=== PATIENT | female | born 1980 | race Caucasian/White ===

== ENCOUNTER → 2017-06-25 | Outpatient (CLI) | payer OTHER ==
[2017-06-25 11:43] VITALS: BP 107/74; PULSE 71; TEMP 98; BMI 30.9
[2017-06-25 15:08] LABS: Appearance,Urine Clear (Clear); Bilirubin,Urine Negative (Negative); Blood,Urine Negative (Negative); Color,Urine Light Yellow; Glucose,Urine (UA) Negative (Negative); Ketones,Urine Negative (Negative); Leukocyte Esterase,Urine Negative (Negative); Nitrite,Urine Negative (Negative); PH, Urine 6.5 (5.0-8.0); Protein,Urine Negative (Negative); Specific Gravity,Urine 1.003 (1.001-1.035); Urobilinogen,Urine <2.0 mg/dL (<2.0)
--- NOTE | 2017-06-25 15:19 | P.HPOB ---
History of Present Illness H&P Date: 06/25/17 Chief Complaint: The patient is here for her routine gynecologic exam. This is a 37 year old G3 PIII with an LMP of 06/19/2017. The patient is status post tubal ligation. Her periods have been about every 21 to 23 days. On the heavier days she has to change your protection about every 2 hours. She states over the past 3 days she has been experiencing some strange sensations. Two days ago she started noticing that she had a sensation similar to that which she experiences prior to reaching orgasm during sexual activity. She was not involved with sexual activity at the time and was going about her normal business. Because of this, she became very aroused and later felt the need to engage in sexual activity for relief. This did seem to satisfy her for about 30 minutes, then she again had this sensation. She states she is a very sexual person but this was unusual for her. She has been more sexually active during the past few days because of this sensation. Today the sensation has not been as strong. She states her genital area now feels overstimulated and and she feels more post orgasmic and wants to avoid stimulation. She is unsure if this is related to some type of psychological arousal or if this is related to her genital organs. She has been experiencing some urinary frequency during this time. She also has noticed some urinary urgency immediately after today's examination. She denies dyspareunia. She denies any changes in her medications. She states she woke from sleep 2 nights ago with a spontaneous orgasm without any genital stimulation. This has not occurred during the day. Review of Systems She has lost about 9 pounds over the last year. She denies respiratory, cardiac , or G.I. problems. : see the HPI. Past Medical History Additional Past Medical History / Comment(s): ESOPHAGIAL SPASMS. Accessory spleen,anxiety,depression,migraines History of Any Multi-Drug Resistant Organisms: None Reported Past Surgical History: Cholecystectomy, Tubal Ligation Additional Past Surgical History / Comment(s): CERVIAL FUSION,plates and screws in neck. MIGRAINES, Past Anesthesia/Blood Transfusion Reactions: Previous Problems w/ Anesthesia Additional Past Anesthesia/Blood Transfusion Reaction / Comment(s): difficulty coming to after anasthesia Past Psychological History: Anxiety, Depression Additional Psychological History / Comment(s): previous suicide attempt ~2004 Smoking Status: Current every day smoker (1/2 pack/day) Past Alcohol Use History: Occasional (0-1/month) Past Drug Use History: None Reported Additional History: She was in 2007 and has been with her current boyfriend since 2009. 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 - Past Family History Daughter(s) Family Medical History: Diabetes Mellitus Brother(s) Family Medical History: Diabetes Mellitus Father Family Medical History: Cancer (Cancer of throat.) Medications and Allergies Home Medications Medication Instructions Recorded Confirmed Type ALPRAZolam [Xanax] 0.25 mg PO DAILY PRN 02/05/16 06/25/17 History Citalopram Hydrobromide [CeleXA] 10 mg PO DAILY 06/25/17 06/25/17 History Omeprazole [PriLOSEC] 20 mg PO AC-BRKFST 06/25/17 06/25/17 History Topiramate [Topamax] 25 mg PO DAILY 06/25/17 06/25/17 History Allergies Allergy/AdvReac Type Severity Reaction Status Date / Time acetaminophen Allergy Unknown Verified 02/05/16 23:49 [From Darvocet-N 100] Penicillins Allergy Unknown Verified 02/05/16 23:49 propoxyphene napsylate Allergy Unknown Verified 02/05/16 23:49 [From Darvocet-N 100] Exam - Vital Signs Vital signs: Vital Signs Temp Pulse BP 06/25/17 11:33 98.0 F 71 107/74 Intake and Output 06/24/17 06/25/17 06/25/17 22:59 06:59 14:59 Other: Weight 79.379 kg Patient Weight 06/26/17 06:59 Weight 79.379 kg Height 5'3" BMI 31. This is a well-developed well-nourished white female who is alert and oriented times 3 in no acute distress. HEENT: Within normal limits. NECK: Supple without mass or thyromegaly. CHEST AND LUNGS: Clear to auscultation. HEART: Regular rate and rhythm. BREASTS: Are without mass or discharge. AXILLARY EXAM: Negative for adenopathy. BACK: Negative for CVA tenderness. ABDOMEN: Soft, nontender, without palpable masses. PELVIC EXAM: Normal external genitalia. There is no vulvar or periclitoral erythema or inflammation. Cervix and vagina appear normal. There is no unusual discharge. There is no evidence of prolapse. The uterus is midposition, nongravid size and nontender. There are no palpable adnexal masses or tenderness. RECTAL EXAM: negative for mass or tenderness and is negative for occult blood. EXTREMITIES: Nontender. IMPRESSION: 1. 37-year-old female with normal gynecologic exam status post tubal ligation. 2. Hyperactive sexual arousal disorder for 3 days. The cause for this is uncertain. The differential diagnosis will include medication side effect, atypical urinary tract infection or some type of atypical neurologic disorder. 3. Mild hypermenorrhea. PLAN: 1. Pap smear was deferred since she had a normal one less than 2 years ago. 2. Self breast examination was discussed. 3. Urinalysis and urine culture were obtained. 4. We have had a long discussion regarding her symptoms. Since she feels a type of over stimulation, she was to advise to avoid all sexual activity at this time to see if her symptoms resolve. She will also be seeing her psychiatrist who prescribed her Celexa Topamax and Xanax. She will discuss her symptoms with her psychiatrist to see if he or she feels that the medications could be a cause for her hyperactive sexual arousal symptoms. 5. We have discussed options for her hypermenorrhea. She is going to contemplate possible endometrial ablation. She will call if she wants a referral for this procedure. 6. She will return in one year and PRN
--- NOTE | 2017-06-25 16:11 | P.PN ---
Progress Note - Text Progress Note Date: 06/25/17 See the H&P from today. Urinalysis is negative. The patient was called and notified of this. Await urine culture.
--- NOTE | 2017-07-01 17:54 | P.PN ---
Progress Note - Text Progress Note Date: 07/01/17 The urinalysis and urine culture from 06/25/17 were negative. These findings were left on the patient's voicemail.
== END | disposition home or self-care (01) ==
LOC: WWCWWP 11:18
PROVIDERS: ATTEND Obstetrics & Gynecology
DX: R35.0 Frequency of micturition (principal)
CPT/HCPCS: 81003; 87086

== ENCOUNTER → 2018-09-22 | Outpatient (CLI) | payer OTHER ==
[2018-09-22 12:56] VITALS: BP 109/77; PULSE 63; RESP 16; TEMP 98.1; BMI 29.5
--- NOTE | 2018-09-22 13:36 | P.HPOB ---
History of Present Illness H&P Date: 09/22/18 Chief Complaint: The patient is here for her routine gynecologic exam and ma mmogram. This is a 38-year-old G3 PIII with an LMP of 09/11/2018. The patient is status post tubal ligation. She is complaining of occasional slight urinary leakage with laughing or coughing. She states that it usually happens right away when she laughs our coughs. She denies urge incontinence. She states she has been one that holds her urine longer than she should. Last year she was having hyperactive sexual arousal and this was found to be secondary to the combination of Lexapro and Celexa. One of them was discontinued and the symptoms resolved. Review of Systems The patient has lost 8 pounds over the last year. She denies respiratory, cardiac, or G.I. problems. : occasional slight leakage of urine with coughing or laughing. Past Medical History Additional Past Medical History / Comment(s): ESOPHAGIAL SPASMS. Accessory spleen,anxiety,depression,migraines. 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 History of Any Multi-Drug Resistant Organisms: None Reported Past Surgical History: Appendectomy, Cholecystectomy, Tubal Ligation Additional Past Surgical History / Comment(s): CERVIAL FUSION,plates and screws in neck. MIGRAINE. Past Anesthesia/Blood Transfusion Reactions: Previous Problems w/ Anesthesia Additional Past Anesthesia/Blood Transfusion Reaction / Comment(s): difficulty coming to after anasthesia Past Psychological History: Anxiety, Depression Additional Psychological History / Comment(s): previous suicide attempt ~2004 Smoking Status: Former smoker Past Alcohol Use History: Occasional Past Drug Use History: None Reported Additional History: Quit smoking March 2018. She is and has been with her boyfriend since 2008. 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 She works out of her home. - Past Family History Daughter(s) Family Medical History: Diabetes Mellitus Additional Family Medical History / Comment(s): Type I diabetes. Brother(s) Family Medical History: Diabetes Mellitus Additional Family Medical History / Comment(s): Type I diabetes. Father Family Medical History: Cancer Additional Family Medical History / Comment(s): Throat cancer. Cousin had brain cancer. Medications and Allergies Home Medications Medication Instructions Recorded Confirmed Type ALPRAZolam [Xanax] 0.25 mg PO DAILY PRN 02/05/16 09/22/18 History Citalopram Hydrobromide [CeleXA] 10 mg PO DAILY 06/25/17 09/22/18 History Omeprazole [PriLOSEC] 20 mg PO AC-BRKFST 06/25/17 09/22/18 History Allergies Allergy/AdvReac Type Severity Reaction Status Date / Time acetaminophen Allergy Unknown Verified 09/22/18 12:51 [From Darvocet-N 100] Penicillins Allergy Unknown Verified 09/22/18 12:51 propoxyphene napsylate Allergy Unknown Verified 09/22/18 12:51 [From Darvocet-N 100] Exam Vital Signs Temp Pulse Resp BP Pulse Ox 09/22/18 12:53 98.1 F 63 16 109/77 99 Intake and Output 09/21/18 09/22/18 09/22/18 22:59 06:59 14:59 Other: Weight 75.75 kg Height 5'3", weight 167 pounds, BMI 29.6. This is a well-developed well-nourished white female who is alert and oriented t imes 3 in no acute distress. HEENT: Within normal limits. NECK: Supple without mass or thyromegaly. CHEST AND LUNGS: Clear to auscultation. HEART: Regular rate and rhythm. BREASTS: Are without mass or discharge. There is right central nipple inversion which the patient states has been this way for many years. The left nipple is not inverted. AXILLARY EXAM: Negative for adenopathy. BACK: Negative for CVA tenderness. ABDOMEN: Soft, nontender, without palpable masses. PELVIC EXAM: Normal external genitalia. Cervix and vagina appear normal. There is no unusual discharge. There is no evidence of prolapse. There is mild urethral mobility with Valsalva. No urinary leakage is demonstrated. The uterus is midposition, nongravid size and nontender. There are no palpable adnexal masses or tenderness. RECTAL EXAM: negative for mass or tenderness and is negative for occult blood. EXTREMITIES: Nontender. IMPRESSION: 1. 38-year-old female with normal gynecologic examination who is status post tubal ligation. 2. Mild stress urinary incontinence with mild urethral mobility with Valsalva. PLAN: 1. Pap smear was performed. 2. Self breast awareness was discussed with the patient. 3. Baseline screening mammogram will be done today. 4. We have discussed her mild stress urinary incontinence. I have recommended K[place] exercises with time to voids. Instructions were given to the patient for these. If she is having worsening symptoms, I have recommended that she be referred for further evaluation by a gynecologic urologist. 5. She was advised to return in one year for her annual well woman exam. The patient states she will be probably returning every other year.
--- NOTE | 2018-09-22 14:05 | MM ---
Reason for exam: screening (asymptomatic). Baseline mammogram. History: Took hormonal contraceptives beginning at age 13. Physical Findings: Nurse did not find any significant physical abnormalities on exam. MG Screening Mammo w CAD Bilateral CC and MLO view(s) were taken. The breast tissue is heterogeneously dense. This may lower the sensitivity of mammography. No suspicious abnormality. These results were verbally communicated with the patient and result sheet given to the patient on 09/22/18. ASSESSMENT: Negative, BI-RAD 1 RECOMMENDATION: Routine screening mammogram of both breasts in 1 year.
== END | disposition home or self-care (01) ==
LOC: WWCWWP 12:41
PROVIDERS: ATTEND Obstetrics & Gynecology
DX: Z12.31 Encounter for screening mammogram for malignant neoplasm of breast (principal)
CPT/HCPCS: 77067

== ENCOUNTER → 2020-05-19 | Outpatient (CLI) | payer OTHER ==
[2020-05-19 15:23] LABS: Basophils # (A) 0.06 X 10*3/uL (0.00-0.10); Basophils % (A) 0.7 %; Eosinophils # (A) 1.22 X 10*3/uL (0.04-0.35); Eosinophils % (A) 14.8 %; HCT 40.9 % (37.2-46.3); HGB 13.4 g/dL (12.0-15.0); Lymphocytes # (A) 1.39 X 10*3/uL (0.90-5.00); Lymphocytes % (A) 16.9 %; MCH 32.1 pg (27.0-32.0); MCHC 32.8 g/dL (32.0-37.0); MCV 98.1 fL (80.0-97.0); Monocytes # (A) 0.49 X 10*3/uL (0.20-1.00); Monocytes % (A) 5.9 %; Neutrophils # (A) 5.06 X 10*3/uL (1.80-7.70); Neutrophils % (A) 61.5 %; Platelet Count 197 X 10*3/uL (140-440); RBC 4.17 X 10*6/uL (4.10-5.20); RDW 12.6 % (11.5-14.5); WBC 8.24 X 10*3/uL (4.50-10.00)
[2020-05-19 20:33] LABS: ALT 13 U/L (8-44); AST 17 U/L (13-35); African American GFR (CKD) 91.4 (60.0-200.0); Albumin/Globulin Ratio 2.47 (1.60-3.17); Alkaline Phosphatase 63 U/L (41-126); Bilirubin, Conjugated <0.20 mg/dL (0.20-0.40); Carbon Dioxide 24.1 mmol/L (21.6-31.8); Chloride 107 mmol/L (96-109); Globulin 1.9 g/dL (1.6-3.3); Glucose 101 mg/dL (70-110); Lithium 0.7 mmol/L (0.5-1.2); Non-African American GFR(CKD) 78.9 (60.0-200.0); Potassium 4.7 mmol/L (3.5-5.5); Prolactin 74.4 ng/mL (2.8-29.2); Sodium 138 mmol/L (135-145); Total Bilirubin 0.5 mg/dL (0.3-1.2); Total Protein 6.6 g/dL (6.2-8.2)
[2020-05-19 20:33] LABS: Thyroid Peroxidase Antibodies <28.0 U/mL (0.0-60.0)
== END | disposition home or self-care (01) ==
LOC: LABWHC1 08:09
DX: Z01.812 Encounter for preprocedural laboratory examination (principal); Z79.899 Other long term (current) drug therapy
CPT/HCPCS: 36415; 80051; 80076; 80178; 82565; 82947; 83036; 84146; 84432; 84439; 84443; 84481; 84520; 85025; 86376; 86800

== ENCOUNTER → 2020-05-25 | Outpatient (CLI) | payer OTHER ==
[2020-05-25 13:27] LABS: Basophils # (A) 0.1 k/uL (0-0.2); Basophils % (A) 1 %; Eosinophils # (A) 2.5 k/uL (0-0.7); Eosinophils % (A) 24 %; HCT 42.3 % (34.0-46.0); HGB 14.2 gm/dL (11.4-16.0); Lymphocytes # (A) 2.3 k/uL (1.0-4.8); Lymphocytes % (A) 21 %; MCH 32.4 pg (25.0-35.0); MCHC 33.5 g/dL (31.0-37.0); MCV 96.6 fL (80.0-100.0); Mean Platelet Volume 7.8; Monocytes # (A) 0.4 k/uL (0-1.0); Monocytes % (A) 4 %; Neutrophils # (A) 5.3 k/uL (1.3-7.7); Neutrophils % (A) 49 %; Platelet Count 193 k/uL (150-450); RBC 4.38 m/uL (3.80-5.40); RDW 12.8 % (11.5-15.5); WBC 10.7 k/uL (3.8-10.6)
== END | disposition home or self-care (01) ==
LOC: LABWHC1 12:53
DX: D72.19 Other eosinophilia (principal)
CPT/HCPCS: 36415; 85025

== ENCOUNTER → 2020-05-30 | Outpatient (CLI) | payer OTHER ==
[2020-05-30 10:28] LABS: Basophils # (A) 0.1 k/uL (0-0.2); Basophils % (A) 1 %; Eosinophils # (A) 2.8 k/uL (0-0.7); HCT 41.5 % (34.0-46.0); HGB 13.8 gm/dL (11.4-16.0); Lymphocytes % (A) 18 %; MCH 32.1 pg (25.0-35.0); MCHC 33.2 g/dL (31.0-37.0); MCV 96.5 fL (80.0-100.0); Monocytes # (A) 0.4 k/uL (0-1.0); Monocytes % (A) 3 %; Neutrophils # (A) 5.7 k/uL (1.3-7.7); Neutrophils % (A) 51 %; Platelet Count 202 k/uL (150-450); RDW 13.2 % (11.5-15.5); WBC 11.1 k/uL (3.8-10.6)
[2020-05-30 11:10] LABS: Eosinophils % (A) 26 %
== END | disposition home or self-care (01) ==
LOC: LABWHC1 09:57
PROVIDERS: ATTEND Internal Medicine
DX: D72.19 Other eosinophilia (principal); Z88.8 Allergy status to other drugs, medicaments and biological substances
CPT/HCPCS: 36415; 85025

== ENCOUNTER → 2020-06-02 | Outpatient (CLI) | payer OTHER ==
[2020-06-02 14:25] LABS: Basophils # (A) 0.1 k/uL (0-0.2); Basophils % (A) 1 %; Eosinophils # (A) 2.5 k/uL (0-0.7); HCT 41.4 % (34.0-46.0); HGB 13.8 gm/dL (11.4-16.0); Lymphocytes # (A) 2.4 k/uL (1.0-4.8); Lymphocytes % (A) 27 %; MCH 32.3 pg (25.0-35.0); MCHC 33.4 g/dL (31.0-37.0); MCV 96.9 fL (80.0-100.0); Mean Platelet Volume 8.1; Monocytes # (A) 0.3 k/uL (0-1.0); Monocytes % (A) 3 %; Neutrophils # (A) 3.5 k/uL (1.3-7.7); Neutrophils % (A) 39 %; Platelet Count 182 k/uL (150-450); RBC 4.28 m/uL (3.80-5.40); RDW 12.8 % (11.5-15.5); WBC 8.8 k/uL (3.8-10.6)
[2020-06-02 14:33] LABS: Eosinophils % (A) 29 %
== END | disposition home or self-care (01) ==
LOC: LABWHC1 13:53
PROVIDERS: ATTEND Internal Medicine
DX: D72.19 Other eosinophilia (principal); Z88.8 Allergy status to other drugs, medicaments and biological substances
CPT/HCPCS: 36415; 85025

== ENCOUNTER → 2020-06-09 | Outpatient (CLI) | payer OTHER ==
[2020-06-09 09:10] LABS: Basophils # (A) 0.1 k/uL (0-0.2); Basophils % (A) 1 %; Eosinophils # (A) 1.7 k/uL (0-0.7); HCT 42.6 % (34.0-46.0); HGB 13.9 gm/dL (11.4-16.0); Lymphocytes # (A) 1.3 k/uL (1.0-4.8); Lymphocytes % (A) 20 %; MCH 31.1 pg (25.0-35.0); MCHC 32.6 g/dL (31.0-37.0); MCV 95.6 fL (80.0-100.0); Monocytes # (A) 0.3 k/uL (0-1.0); Monocytes % (A) 5 %; Neutrophils # (A) 3.1 k/uL (1.3-7.7); Neutrophils % (A) 47 %; Platelet Count 187 k/uL (150-450); RBC 4.46 m/uL (3.80-5.40); RDW 13.4 % (11.5-15.5); WBC 6.6 k/uL (3.8-10.6)
[2020-06-09 09:31] LABS: Eosinophils % (A) 26 %
== END | disposition home or self-care (01) ==
LOC: LABWHC1 08:54
PROVIDERS: ATTEND Internal Medicine
DX: Z88.8 Allergy status to other drugs, medicaments and biological substances (principal); D72.19 Other eosinophilia
CPT/HCPCS: 36415; 85025

== ENCOUNTER 2020-11-01 12:19 | Emergency (ER) | payer OTHER ==
[2020-11-01 12:24] LABS: Glucose,Whole Blood 112 mg/dL (75-99)
[2020-11-01 12:26] VITALS: TEMP 98.2
[2020-11-01] MEDS ORDERED: SODIUM CHLORIDE 0.9% 1,000 ML IV STA (12:47)
--- NOTE | 2020-11-01 13:14 | ED ---
General Adult HPI - General Chief complaint: Dizziness Stated complaint: Light-Headed/Shakiness Time Seen by Provider: 11/01/20 12:29 Source: patient, RN notes reviewed, old records reviewed Mode of arrival: wheelchair Limitations: no limitations - History of Present Illness Initial comments: 40-year-old female presenting with near syncopal episode. She had been bent over petting her dog, when she stood she felt very lightheaded. She had some brief visual changes and became diaphoretic. She states she has been dealing with some increased anxiety and has had some medications added by her psychiatrist. She denied chest pain or dyspnea. No previous history of arrhythmia. She states she has not had much to eat or drink today but has not had any significant vomiting or diarrhea. No fevers. - Related Data Home Medications Medication Instructions Recorded Confirmed ALPRAZolam [Xanax] 0.5 mg PO TID 11/01/20 11/01/20 ARIPiprazole [Abilify] 10 mg PO DAILY 11/01/20 11/01/20 Allergies Allergy/AdvReac Type Severity Reaction Status Date / Time acetaminophen Allergy Unknown Verified 09/22/18 12:51 [From Darvocet-N 100] lithium Allergy Unknown Verified 11/01/20 12:26 Penicillins Allergy Unknown Verified 09/22/18 12:51 propoxyphene napsylate Allergy Unknown Verified 09/22/18 12:51 [From Darvocet-N 100] Review of Systems ROS Statement: Those systems with pertinent positive or pertinent negative responses have been documented in the HPI. ROS Other: All systems not noted in ROS Statement are negative. Past Medical History Additional Past Medical History / Comment(s): ESOPHAGIAL SPASMS. Accessory spleen,anxiety,depression,migraines. 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 History of Any Multi-Drug Resistant Organisms: None Reported Past Surgical History: Appendectomy, Cholecystectomy, Tubal Ligation Additional Past Surgical History / Comment(s): CERVIAL FUSION,plates and screws in neck. MIGRAINE. Past Anesthesia/Blood Transfusion Reactions: Previous Problems w/ Anesthesia Additional Past Anesthesia/Blood Transfusion Reaction / Comment(s): difficulty coming to after anasthesia Past Psychological History: Anxiety, Bipolar, Depression Smoking Status: Never smoker Past Alcohol Use History: Occasional Past Drug Use History: Marijuana - Past Family History Daughter(s) Family Medical History: Diabetes Mellitus Additional Family Medical History / Comment(s): Type I diabetes. Brother(s) Family Medical History: Diabetes Mellitus Additional Family Medical History / Comment(s): Type I diabetes. Father Family Medical History: Cancer Additional Family Medical History / Comment(s): Throat cancer. Cousin had brain cancer. General Exam Limitations: no limitations General appearance: alert, in no apparent distress Head exam: Present: atraumatic, normocephalic Eye exam: Present: normal appearance, PERRL ENT exam: Present: normal exam Neck exam: Present: normal inspection. Absent: tenderness, meningismus Respiratory exam: Present: normal lung sounds bilaterally. Absent: respiratory distress, wheezes Cardiovascular Exam: Present: regular rate, normal rhythm GI/Abdominal exam: Present: soft. Absent: distended, tenderness Extremities exam: Present: normal inspection, normal capillary refill. Absent: pedal edema, calf tenderness Neurological exam: Present: alert, oriented X3, CN II-XII intact Psychiatric exam: Present: anxious Skin exam: Present: warm, dry, intact. Absent: cyanosis, diaphoretic Course Vital Signs 11/01/20 11/01/20 12:19 13:32 Temperature 98.2 F Pulse Rate 75 62 Respiratory 18 20 Rate Blood Pressure 102/71 117/76 O2 Sat by Pulse 99 98 Oximetry EKG Findings - EKG Comments: EKG Findings:: EKG: Normal sinus rhythm, low voltage, rate of 66, LA interval 120, QRS duration 82, QTC 446, no ST segment elevation. Medical Decision Making - Medical Decision Making 40-year-old female presenting with near syncopal episode after standing. Patient has stable vitals upon arrival. She is in sinus rhythm. I did obtain laboratory testing including blood work and urinalysis. She has a normal CBC, normal CMP, negative urinalysis, negative urine test. She has normal electrolytes, negative d-dimer, negative troponin. Chest x-ray is clear. She's given a liter of IV hydration. She is feeling good on reevaluation with some mild nausea. No vomiting. We did discuss return parameters. She will maintain oral hydration at home and increase her fluid intake. - Lab Data Result diagrams: 11/01/20 13:00 11/01/20 13:00 Lab Results 11/01/20 11/01/20 11/01/20 Range/Units 12:23 13:00 13:00 WBC 8.6 (3.8-10.6) k/uL RBC 4.21 (3.80-5.40) m/uL Hgb 13.8 (11.4-16.0) gm/dL Hct 40.5 (34.0-46.0) % MCV 96.2 (80.0-100.0) fL MCH 32.8 (25.0-35.0) pg MCHC 34.1 (31.0-37.0) g/dL RDW 13.1 (11.5-15.5) % Plt Count 210 (150-450) k/uL MPV 8.4 Neutrophils % 58 % Lymphocytes % 29 % Monocytes % 4 % Eosinophils % 7 % Basophils % 1 % Neutrophils # 5.0 (1.3-7.7) k/uL Lymphocytes # 2.5 (1.0-4.8) k/uL Monocytes # 0.4 (0-1.0) k/uL Eosinophils # 0.6 (0-0.7) k/uL Basophils # 0.1 (0-0.2) k/uL PT 9.8 (9.0-12.0) sec INR 0.9 (<1.2) APTT 24.2 (22.0-30.0) sec D-Dimer 0.35 (<0.60) mg/L FEU Sodium (137-145) mmol/L Potassium (3.5-5.1) mmol/L Chloride (98-107) mmol/L Carbon Dioxide (22-30) mmol/L Anion Gap mmol/L BUN (7-17) mg/dL Creatinine (0.52-1.04) mg/dL Est GFR (CKD-EPI)AfAm (>60 ml/min/1.73 sqM) Est GFR (CKD-EPI)NonAf (>60 ml/min/1.73 sqM) Glucose (74-99) mg/dL POC Glucose (mg/dL) 112 H (75-99) mg/dL POC Glu Knock Out Hand ID [place], Cat Calcium (8.4-10.2) mg/dL Magnesium (1.6-2.3) mg/dL Total Bilirubin (0.2-1.3) mg/dL AST (14-36) U/L ALT (4-34) U/L Alkaline Phosphatase (38-126) U/L Troponin I (0.000-0.034) ng/mL Total Protein (6.3-8.2) g/dL Albumin (3.5-5.0) g/dL Urine Color Urine Appearance (Clear) Urine pH (5.0-8.0) Ur Specific [place] (1.001-1.035) Urine Protein (Negative) Urine Glucose (UA) (Negative) Urine Ketones (Negative) Urine Blood (Negative) Urine Nitrite (Negative) Urine Bilirubin (Negative) Urine Urobilinogen (<2.0) mg/dL Ur Leukocyte Esterase (Negative) Urine HCG, Qual (Not Detectd) 11/01/20 11/01/20 11/01/20 Range/Units 13:00 13:00 13:00 WBC (3.8-10.6) k/uL RBC (3.80-5.40) m/uL Hgb (11.4-16.0) gm/dL Hct (34.0-46.0) % MCV (80.0-100.0) fL MCH (25.0-35.0) pg MCHC (31.0-37.0) g/dL RDW (11.5-15.5) % Plt Count (150-450) k/uL MPV Neutrophils % % Lymphocytes % % Monocytes % % Eosinophils % % Basophils % % Neutrophils # (1.3-7.7) k/uL Lymphocytes # (1.0-4.8) k/uL Monocytes # (0-1.0) k/uL Eosinophils # (0-0.7) k/uL Basophils # (0-0.2) k/uL PT (9.0-12.0) sec INR (<1.2) APTT (22.0-30.0) sec D-Dimer (<0.60) mg/L FEU Sodium 139 (137-145) mmol/L Potassium 4.1 (3.5-5.1) mmol/L Chloride 108 H (98-107) mmol/L Carbon Dioxide 24 (22-30) mmol/L Anion Gap 7 mmol/L BUN 9 (7-17) mg/dL Creatinine 0.67 (0.52-1.04) mg/dL Est GFR (CKD-EPI)AfAm >90 (>60 ml/min/1.73 sqM) Est GFR (CKD-EPI)NonAf >90 (>60 ml/min/1.73 sqM) Glucose 94 (74-99) mg/dL POC Glucose (mg/dL) (75-99) mg/dL POC Glu Knock Out Hand ID Calcium 9.6 (8.4-10.2) mg/dL Magnesium 1.8 (1.6-2.3) mg/dL Total Bilirubin 0.7 (0.2-1.3) mg/dL AST 23 (14-36) U/L ALT 13 (4-34) U/L Alkaline Phosphatase 56 (38-126) U/L Troponin I <0.012 (0.000-0.034) ng/mL Total Protein 7.0 (6.3-8.2) g/dL Albumin 4.4 (3.5-5.0) g/dL Urine Color Light Yellow Urine Appearance Clear (Clear) Urine pH 5.0 (5.0-8.0) Ur Specific [place] 1.004 (1.001-1.035) Urine Protein Negative (Negative) Urine Glucose (UA) Negative (Negative) Urine Ketones Negative (Negative) Urine Blood Negative (Negative) Urine Nitrite Negative (Negative) Urine Bilirubin Negative (Negative) Urine Urobilinogen <2.0 (<2.0) mg/dL Ur Leukocyte Esterase Negative (Negative) Urine HCG, Qual (Not Detectd) 11/01/20 Range/Units 13:00 WBC (3.8-10.6) k/uL RBC (3.80-5.40) m/uL Hgb (11.4-16.0) gm/dL Hct (34.0-46.0) % MCV (80.0-100.0) fL MCH (25.0-35.0) pg MCHC (31.0-37.0) g/dL RDW (11.5-15.5) % Plt Count (150-450) k/uL MPV Neutrophils % % Lymphocytes % % Monocytes % % Eosinophils % % Basophils % % Neutrophils # (1.3-7.7) k/uL Lymphocytes # (1.0-4.8) k/uL Monocytes # (0-1.0) k/uL Eosinophils # (0-0.7) k/uL Basophils # (0-0.2) k/uL PT (9.0-12.0) sec INR (<1.2) APTT (22.0-30.0) sec D-Dimer (<0.60) mg/L FEU Sodium (137-145) mmol/L Potassium (3.5-5.1) mmol/L Chloride (98-107) mmol/L Carbon Dioxide (22-30) mmol/L Anion Gap mmol/L BUN (7-17) mg/dL Creatinine (0.52-1.04) mg/dL Est GFR (CKD-EPI)AfAm (>60 ml/min/1.73 sqM) Est GFR (CKD-EPI)NonAf (>60 ml/min/1.73 sqM) Glucose (74-99) mg/dL POC Glucose (mg/dL) (75-99) mg/dL POC Glu Knock Out Hand ID Calcium (8.4-10.2) mg/dL Magnesium (1.6-2.3) mg/dL Total Bilirubin (0.2-1.3) mg/dL AST (14-36) U/L ALT (4-34) U/L Alkaline Phosphatase (38-126) U/L Troponin I (0.000-0.034) ng/mL Total Protein (6.3-8.2) g/dL Albumin (3.5-5.0) g/dL Urine Color Urine Appearance (Clear) Urine pH (5.0-8.0) Ur Specific [place] (1.001-1.035) Urine Protein (Negative) Urine Glucose (UA) (Negative) Urine Ketones (Negative) Urine Blood (Negative) Urine Nitrite (Negative) Urine Bilirubin (Negative) Urine Urobilinogen (<2.0) mg/dL Ur Leukocyte Esterase (Negative) Urine HCG, Qual Not Detected (Not Detectd) Disposition Clinical Impression: Near syncope Disposition: HOME SELF-CARE Condition: Good Instructions (If sedation given, give patient instructions): Near Syncope (ED) Is patient prescribed a controlled substance at d/c from ED?: No Referrals: Kieran Malave MD [Primary Care Provider] - 1-2 days Time of Disposition: 14:22
[2020-11-01 13:17] LABS: Appearance,Urine Clear (Clear); Basophils # (A) 0.1 k/uL (0-0.2); Basophils % (A) 1 %; Bilirubin,Urine Negative (Negative); Blood,Urine Negative (Negative); Color,Urine Light Yellow; Eosinophils # (A) 0.6 k/uL (0-0.7); Eosinophils % (A) 7 %; Glucose,Urine (UA) Negative (Negative); HCT 40.5 % (34.0-46.0); HGB 13.8 gm/dL (11.4-16.0); Ketones,Urine Negative (Negative); Leukocyte Esterase,Urine Negative (Negative); Lymphocytes # (A) 2.5 k/uL (1.0-4.8); Lymphocytes % (A) 29 %; MCH 32.8 pg (25.0-35.0); MCHC 34.1 g/dL (31.0-37.0); MCV 96.2 fL (80.0-100.0); Mean Platelet Volume 8.4; Monocytes # (A) 0.4 k/uL (0-1.0); Monocytes % (A) 4 %; Neutrophils % (A) 58 %; Nitrite,Urine Negative (Negative); Platelet Count 210 k/uL (150-450); Protein,Urine Negative (Negative); RBC 4.21 m/uL (3.80-5.40); RDW 13.1 % (11.5-15.5); Specific Gravity,Urine 1.004 (1.001-1.035); Urobilinogen,Urine <2.0 mg/dL (<2.0); WBC 8.6 k/uL (3.8-10.6)
--- NOTE | 2020-11-01 13:31 | XR ---
EXAMINATION TYPE: XR chest 2V DATE OF EXAM: 11/01/2020 COMPARISON: 02/06/2016 HISTORY: Syncope TECHNIQUE: Frontal and lateral views of the chest are obtained. FINDINGS: There is no focal air space opacity, pleural effusion, or pneumothorax seen. The cardiac silhouette size is within normal limits. The osseous structures are intact. IMPRESSION: No acute cardiopulmonary process.
[2020-11-01 13:32] VITALS: PULSE 62; RESP 20
[2020-11-01 13:32] LABS: D-Dimer 0.35 mg/L FEU (<0.60); INR 0.9 (<1.2); Partial Thromboplastin Time 24.2 sec (22.0-30.0); Prothrombin Time 9.8 sec (9.0-12.0)
[2020-11-01 13:42] LABS: ALT 13 U/L (4-34); AST 23 U/L (14-36); African American GFR (CKD) >90 (>60 ml/min/1.73 sqM); Albumin 4.4 g/dL (3.5-5.0); Alkaline Phosphatase 56 U/L (38-126); Anion Gap 7 mmol/L; Blood Urea Nitrogen 9 mg/dL (7-17); Calcium 9.6 mg/dL (8.4-10.2); Carbon Dioxide 24 mmol/L (22-30); Chloride 108 mmol/L (98-107); Glucose 94 mg/dL (74-99); Magnesium 1.8 mg/dL (1.6-2.3); Non-African American GFR(CKD) >90 (>60 ml/min/1.73 sqM); Potassium 4.1 mmol/L (3.5-5.1); Sodium 139 mmol/L (137-145); Total Bilirubin 0.7 mg/dL (0.2-1.3)
[2020-11-01 14:25] VITALS: BP 105/66
== END 2020-11-01 14:34 | disposition home or self-care (01) ==
LOC: EC 12:19
DX: R55 Syncope and collapse (principal); F41.9 Anxiety disorder, unspecified; F32.9 Major depressive disorder, single episode, unspecified; F12.90 Cannabis use, unspecified, uncomplicated
CPT/HCPCS: 36415; 71046; 80053; 81003; 81025; 83735; 84484; 85025; 85379; 85610; 85730; 93005; 96360; 99284

== ENCOUNTER → 2020-12-05 | Outpatient (CLI) | payer OTHER ==
[2020-12-05 14:08] VITALS: BP 113/77; PULSE 72; RESP 18
--- NOTE | 2020-12-05 15:24 | P.HPOB ---
History of Present Illness H&P Date: 12/05/20 Chief Complaint: The patient is here for her routine gynecologic exam and ma mmogram. This is a 40-year-old with an LMP of 12/01/2020. The patient is status post tubal ligation. Menstrual periods are regular every 23 days. She typically last 5-6 days with 3 days of very heavy flow. She states on the heavy days she has to change her protection every 1-1/2-2 hours. She occasionally soaks through her protection. She does have cramping and back ache with the heavy menstrual flow. She also has been having issues with depression and has been seeing her psychiatrist, Dr. Collier. She often notices worsening of depression during the premenstrual days. She can also feel oversensitive during this time which can lead to worsening of her depression. She is on several medications now for her depression. She is currently denying suicidal thoughts at this time, but has been dealing with her psychiatrist regarding suicidal thoughts in the past. She states this is why she is on so many medications for this. Her depression has been doing better on this combination of medications, however it seems to make her more tired. She had one episode where she almost fainted 2 weeks ago. She states she has been smoking more marijuana thinking that this may help with her anxiety and less and the need for some of the medications. Review of Systems The patient has gained 3 pounds over the last year. She denies respiratory, cardiac, or G.I. problems. Past Medical History Additional Past Medical History / Comment(s): ESOPHAGIAL SPASMS. Accessory spleen,anxiety,depression,migraines. 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 History of Any Multi-Drug Resistant Organisms: None Reported Past Surgical History: Appendectomy, Cholecystectomy, Tubal Ligation Additional Past Surgical History / Comment(s): CERVIAL FUSION,plates and screws in neck. MIGRAINE. Past Anesthesia/Blood Transfusion Reactions: Previous Problems w/ Anesthesia Additional Past Anesthesia/Blood Transfusion Reaction / Comment(s): difficulty coming to after anasthesia Past Psychological History: Anxiety, Bipolar, Depression Additional Psychological History / Comment(s): previous suicide attempt ~2004 Smoking Status: Former smoker, Vaper (She vapes nicotine.) Past Alcohol Use History: Occasional (1 per month) Additional Past Alcohol Use History / Comment(s): Quit smoking in 2018. Past Drug Use History: Marijuana (Daily use.) - Past Family History Daughter(s) Family Medical History: Diabetes Mellitus Additional Family Medical History / Comment(s): Type I diabetes. Brother(s) Family Medical History: Diabetes Mellitus Additional Family Medical History / Comment(s): Type I diabetes. Father Family Medical History: Cancer Additional Family Medical History / Comment(s): Throat cancer. Cousin had brain cancer. Medications and Allergies Home Medications Medication Instructions Recorded Confirmed Type ALPRAZolam [Xanax] 0.5 mg PO TID 11/01/20 12/05/20 History ARIPiprazole [Abilify] 10 mg PO HS 11/01/20 12/05/20 History Benztropine Mesylate [Cogentin] 0.5 mg PO BID 11/01/20 12/05/20 History Escitalopram [Lexapro] 20 mg PO DAILY 11/01/20 12/05/20 History FLUoxetine HCL [PROzac] 40 mg PO DAILY 11/01/20 12/05/20 History Topiramate [Topamax] 25 mg PO DAILY 11/01/20 12/05/20 History ALPRAZolam [Xanax XR] 0.5 mg PO DAILY 12/05/20 12/05/20 History Allergies Allergy/AdvReac Type Severity Reaction Status Date / Time lithium Allergy Unknown Verified 12/05/20 14:04 Penicillins Allergy Unknown Verified 12/05/20 14:04 propoxyphene napsylate Allergy Unknown Verified 12/05/20 14:04 [From [facility]-N 100] Exam Vital Signs Pulse Resp BP Pulse Ox 12/05/20 14:01 72 18 113/77 98 Intake and Output 12/05/20 12/05/20 12/05/20 06:59 14:59 22:59 Other: Weight 77.111 kg Height 5 feet 3 inches, weight 170 pounds, BMI 30.1. This is a well-developed well-nourished white female who is alert and oriented times 3 in no acute distress. HEENT: Within normal limits. NECK: Supple without mass or thyromegaly. CHEST AND LUNGS: Clear to auscultation. HEART: Regular rate and rhythm. BREASTS: Are without mass or discharge. Right breast has central nipple inversion and she states it is been this way for many years. The left breast nipple is not inverted. AXILLARY EXAM: Negative for adenopathy. BACK: Negative for CVA tenderness. ABDOMEN: Soft, nontender, without palpable masses. PELVIC EXAM: Normal external genitalia. Cervix and vagina appear normal. There is no unusual discharge. There is no evidence of prolapse. The uterus is midposition, nongravid size and nontender. There are no palpable adnexal masses or tenderness. RECTAL EXAM: negative for mass or tenderness and is negative for occult blood. EXTREMITIES: Nontender. IMPRESSION: 1. 40-year-old female who is status post tubal ligation with hypermenorrhea. 2. History of depression with PMDD. 3. Regular marijuana use. PLAN: 1. Pap smear cotest was performed. 2. Self breast awareness was discussed with the patient. We have also discussed symptoms associated with inflammatory breast cancer. 3. Screening mammogram will be done today. 4. We have had a long discussion regarding her menstrual periods as well as her premenstrual symptoms. She was wondering if surgical menopause would be beneficial. We have had a long discussion regarding how removal of the ovaries can sometimes lead to other symptoms and sometimes worsening of depression. After long discussion, we have decided to proceed with endometrial ablation since this should help with her hypermenorrhea and it is possible that she may have improvement with her cyclic symptoms, especially if she no longer has menstrual periods. 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 We can still consider other options if symptoms are not improving after the ablation. The ACOG FAQ on endometrial ablation was given to the patient. He will be referred to Dr. Buitrago for possible endometrial ablation. I did not feel that hormone blood tests will be very beneficial since she is having regular menstrual periods. This is not saying that her symptoms are not hormonally related. 5. I have recommended that she try to decrease marijuana use since this may have effects on her mental health. 6. She was advised to return in one year for her annual well woman exam and as needed.
--- NOTE | 2020-12-07 09:43 | MM ---
Reason for exam: screening (asymptomatic). Last mammogram was performed 2 years and 2 months ago. History: Took hormonal contraceptives beginning at age 13. Physical Findings: A clinical breast exam by your physician is recommended on an annual basis and results should be correlated with mammographic findings. MG Screening Mammo w CAD Bilateral CC and MLO view(s) were taken. Prior study comparison: September 22, 2018, bilateral MG screening mammo w CAD. The breast tissue is heterogeneously dense. This may lower the sensitivity of mammography. Medial anterior asymmetric density right CC view is increased. Central outer asymmetric density posterior right CC view is increased. Posterior superior asymmetric density right MLO view. ASSESSMENT: Incomplete: need additional imaging evaluation, BI-RAD 0 RECOMMENDATION: Special view mammogram of the right breast. (3D) If lesion persists on supplemental views, image directed ultrasound is recommended. [facility] will attempt to contact patient to return for supplemental views and ultrasound if indicated.
== END | disposition home or self-care (01) ==
LOC: WWCWWP 13:43
PROVIDERS: ATTEND Obstetrics & Gynecology
DX: Z12.31 Encounter for screening mammogram for malignant neoplasm of breast (principal); F12.90 Cannabis use, unspecified, uncomplicated; N92.0 Excessive and frequent menstruation with regular cycle; Z98.51 Tubal ligation status
CPT/HCPCS: 77067

== ENCOUNTER → 2021-01-19 | Outpatient (CLI) | payer OTHER ==
[2021-01-19 11:40] LABS: Basophils % (A) 1 %; Eosinophils # (A) 0.3 k/uL (0-0.7); Eosinophils % (A) 5 %; HCT 38.3 % (34.0-46.0); HGB 12.7 gm/dL (11.4-16.0); Lymphocytes # (A) 2.1 k/uL (1.0-4.8); Lymphocytes % (A) 31 %; MCH 32.6 pg (25.0-35.0); MCHC 33.1 g/dL (31.0-37.0); MCV 98.7 fL (80.0-100.0); Mean Platelet Volume 8.1; Monocytes # (A) 0.3 k/uL (0-1.0); Monocytes % (A) 4 %; Neutrophils # (A) 3.9 k/uL (1.3-7.7); Neutrophils % (A) 59 %; Platelet Count 201 k/uL (150-450); RBC 3.88 m/uL (3.80-5.40); RDW 12.6 % (11.5-15.5); WBC 6.7 k/uL (3.8-10.6)
== END | disposition home or self-care (01) ==
LOC: LABPAT 10:35
PROVIDERS: ATTEND Obstetrics & Gynecology
DX: Z01.812 Encounter for preprocedural laboratory examination (principal); N92.1 Excessive and frequent menstruation with irregular cycle
CPT/HCPCS: 85025

== ENCOUNTER 2021-01-29 07:40 | Day surgery (SDC) | payer OTHER ==
[2021-01-25 13:31] VITALS: BMI 29.0
[~2021-01-29 07:40] MED LIST: DEXAMETHASONE SOD PHOSPHATE 4 MG/ML 1 ML VIAL IV ONE; HYDROmorphone 0.5 MG/0.5 ML SYRINGE IVP PRN; LACTATED RINGERS 1,000 ML IV SCH; LIDOCAINE 1% (10MG/ML) FOR IV START INTRADERMA PRN; MIDAZOLAM 2 MG/2 ML VIAL IV PRN; ONDANSETRON 4 MG/2 ML VIAL IVP ONE
[2021-01-29 08:12] VITALS: RESP 16
[2021-01-29] MEDS ORDERED: ePHEDrine SULFATE/0.9% NACL/PF 50 MG/5 ML SYRINGE IV ONE (08:36)
[2021-01-29] MEDS ORDERED: LIDOCAINE 1% INJ 10MG/ML (20 ML MDV) ONE (08:36)
[2021-01-29] MEDS ORDERED: KETOROLAC 15 MG/ML 1 ML VIAL ONE (08:36)
[2021-01-29] MEDS ORDERED: fentaNYL (PF) 50 MCG/ML 2 ML AMP ONE (08:36)
[2021-01-29] MEDS ORDERED: PROPOFOL 10 MG/ML 20 ML VIAL IV ONE (08:36)
[2021-01-29] MEDS ORDERED: MIDAZOLAM 2 MG/2 ML VIAL ONE (08:36)
[2021-01-29] MEDS ORDERED: METOCLOPRAMIDE 5 MG/ML 2 ML VIAL IVP PRN (09:20)
[2021-01-29] MEDS ORDERED: ONDANSETRON 4 MG/2 ML VIAL IVP PRN (09:20)
[2021-01-29] MEDS ORDERED: Acetaminophen-Codeine 300-30mg TAB PO PRN ×2 (09:20)
[2021-01-29] MEDS ORDERED: IBUPROFEN 600 MG TAB PO PRN (09:20)
[2021-01-29] MEDS ORDERED: KETOROLAC 15 MG/ML 1 ML VIAL IVP PRN (09:20)
[2021-01-29] MEDS ORDERED: SIMETHICONE 80 MG CHEWABLE PO PRN (09:20)
[2021-01-29] MEDS ORDERED: diphenhydrAMINE 50 MG/ML 1 ML VIAL IVP PRN (09:20)
--- NOTE | 2021-01-29 09:28 | P.OP ---
Date of Procedure: 01/29/21 Preoperative Diagnosis: #1. Menometrorrhagia Postoperative Diagnosis: Same Procedure(s) Performed: #1. Diagnostic hysteroscopy #2. NovaSure endometrial ablation Anesthesia: other (Gen. by LMA) Surgeon: Parth Buitrago Estimated Blood Loss (ml): 5 IV fluids (ml): 500 Urine output (ml): 10 Pathology: none sent Condition: stable Disposition: PACU Operative Findings: Preoperative pelvic examination demonstrated a roughly 5 week anteverted mobile normal shaped uterus with normal adnexa bilaterally. Intraoperatively, the uterus sounded to approximately 9 cm with a cervical length of approximately 3.5 cm. Using the hysteroscope, the bilateral tubal ostia were seen and there was a moderate amount of shaggy endometrium present. There was no evidence of obvious polyps or fibroids or other pathology. The settings for the NovaSure tool were initially a length of 5.5 cm, a width of 4.5 cm for a total power 136 W. After a total run time of 69 seconds divided between 4 different attempts to ablate the, the tool and base unit were abandoned and replaced with a new tool and new base unit. The first tool reportedly failed for a vacuum failure on multiple different attempts. The second 2 was then placed for a length of 5.5 cm, a width of 3.5 cm for a total power of 106 W. The total run time for this to was 87 seconds after which time the base unit read "procedure complete." The postprocedural result appeared excellent. The patient is a potential candidate for vaginal hysterectomy should it become necessary. Description of Procedure: The patient was prepped and draped in usual fashion after general anesthesia was administered by the anesthesiologist. A weighted speculum was placed and the bladder drained of approximately 10 mL of clear judi urine. The anterior lip of the cervix was grasped with a single tooth tenaculum and uterus was sounded to 9 cm with a cervical length of 3.5 cm. Serial dilation was carried out to admit the diagnostic hysteroscope which was placed into the endometrial cavity and it was distended with saline. The findings were as noted above with no significant pathology noted though there was a small to moderate amount of shaggy tissue, particularly on the posterior wall of the uterus. After adequate hysteroscopy been carried out, the scope was set aside in the NovaSure tool placed into the cavity, opened, and seated well. The settings were as noted above with a length of 5.5 cm, a width of 4.5 cm for a total power 136 W. The cavity check was attempted and passed without difficulty and the tool was enabled. The run was started and at approximately 40 seconds or so, the tool failed with an air message of failed vacuum. Attempts were made to clear the vacuum concern and the 2 was really enabled and started again. A similar situation happened again. 2 more attempts were made with both resulting in vacuum failure. The total run between all 4 runs was approximate 69 seconds. The tool was closed, removed, and discarded and the base unit replaced with a different units. A new tool was placed into the cavity of the uterus with a length of 5.5 cm, a width of 3.5 cm for a total power 106 W. The cavity check was again attempted and passed without difficulty and the tool was enabled. The run was started and, after a total run time of 87 seconds, the base unit read "procedure complete." The 2 was removed and discarded and the diagnostic scope replaced within the endometrial cavity. The result appeared to be excellent. All instrumentation was then removed from the patient. A small point of bleeding from one of the tenaculum sites was made hemostatic with pressure. Estimated blood loss for the case was approximately 5 mL or less. There were no complications aside from the initial failure of the first tool and base unit. All sponge, instrument, and needle counts were correct. The patient is a potential candidate for vaginal hysterectomy should it become necessary in the future. The patient tolerated the procedure well and proceeded to the recovery room in stable condition.
[2021-01-29] MEDS ORDERED: LACTATED RINGERS 1,000 ML IV SCH (09:30)
[2021-01-29 09:39] VITALS: TEMP 97.8
[2021-01-29 10:44] VITALS: BP 113/78; PULSE 73
== END 2021-01-29 10:55 | disposition home or self-care (01) ==
LOC: OR 07:40
PROVIDERS: ATTEND Obstetrics & Gynecology
DX: N92.1 Excessive and frequent menstruation with irregular cycle (principal); F12.90 Cannabis use, unspecified, uncomplicated; G43.909 Migraine, unspecified, not intractable, without status migrainosus
CPT/HCPCS: 58563; 81025; J2250; J1100; J2405; J2001; J3010; J1885; J2704

== ENCOUNTER → 2022-02-05 | Outpatient (CLI) | payer OTHER ==
[2022-02-05 13:40] VITALS: BP 111/73; PULSE 68; RESP 17; TEMP 98.1
--- NOTE | 2022-02-05 13:49 | MM ---
Reason for Exam: Follow-up at short interval from prior study. Last mammogram was performed 1 year(s) and 2 month(s) ago. Patient History: Menarche at age 9. First Full-Term at age 18. Hormonal Contraceptives, from age 13 until age 30. Mother had breast cancer, age 63. Risk Values: Milana 5 year model risk: 1.5%. NCI Lifetime model risk: 19.4%. Prior Study Comparison: 09/22/2018 Bilateral Screening Mammogram, [facility]. 12/05/2020 Bilateral Screening Mammogram, [facility]. 12/13/2020 Right Diagnostic Mammogram, [facility]. Tissue Density: The breast tissue is heterogeneously dense. This may lower the sensitivity of mammography. Findings: Analyzed By CAD. No suspicious calcifications within either breast. No new suspicious mass within either breast. No significant change from prior examination. Overall Assessment: Benign, BI-RAD 2 Management: Screening Mammogram of both breasts in 1 year. A clinical breast exam by your physician is recommended on an annual basis and results should be correlated with mammographic findings. This exam should not preclude additional follow-up of suspicious palpable abnormalities. Results were given to the patient verbally at the time of exam. Electronically signed and approved by: Robert Elaine D.O.
--- NOTE | 2022-02-05 14:47 | P.HPOB ---
History of Present Illness H&P Date: 02/05/22 Chief Complaint: The patient is here for her routine gynecologic exam and ma mmogram. This is a 41-year-old with an LMP of 01/2021. The patient is status post endometrial ablation about 1 year ago. She has been amenorrheic since then. She continues to have stress urinary incontinence symptoms. She can notice immediate leakage with coughing sneezing or jumping. This has gotten worse despite ketal exercises and timed voids. She is requesting referral for this. Review of Systems The patient has gained 15 pounds over the last year. She attributes this to depression medications. She has been on many different medications for the de pression and she believes she has found a combination that has worked well for her depression, but has noticed more weight gain with it. She denies respiratory, cardiac, or G.I. problems. : Stress urinary incontinence symptoms. See the HPI. Past Medical History Additional Past Medical History / Comment(s): ESOPHAGIAL SPASMS. Accessory spleen,anxiety,depression,migraines. 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 History of Any Multi-Drug Resistant Organisms: None Reported Past Surgical History: Appendectomy, Cholecystectomy, Tubal Ligation, Uterine Ablation Additional Past Surgical History / Comment(s): CERVIAL FUSION,plates and screws in neck. MIGRAINE. Endometrial ablation 2020. Past Anesthesia/Blood Transfusion Reactions: Previous Problems w/ Anesthesia Additional Past Anesthesia/Blood Transfusion Reaction / Comment(s): difficulty coming to after anasthesia Past Psychological History: Anxiety, Bipolar, Depression Additional Psychological History / Comment(s): previous suicide attempt ~2004 Smoking Status: Former smoker, Vaper (She vapes daily) Past Alcohol Use History: None Reported Additional Past Alcohol Use History / Comment(s): Quit smoking cigarettes in 2018. Past Drug Use History: Marijuana Additional Drug Use History / Comment(s): She smokes marijuana, but not daily. She states she tends to use them more for anxiety as needed. - Past Family History Daughter(s) Family Medical History: Diabetes Mellitus Additional Family Medical History / Comment(s): Type I diabetes. Brother(s) Family Medical History: Diabetes Mellitus Additional Family Medical History / Comment(s): Type I diabetes. Father Family Medical History: Cancer Additional Family Medical History / Comment(s): Throat cancer. Cousin had brain cancer. Medications and Allergies Home Medications Medication Instructions Recorded Confirmed Type ALPRAZolam [Xanax] 0.5 mg PO TID 11/01/20 02/05/22 History ARIPiprazole [Abilify] 10 mg PO DAILY 11/01/20 02/05/22 History Escitalopram [Lexapro] 10 mg PO DAILY 11/01/20 02/05/22 History FLUoxetine HCL [PROzac] 40 mg PO DAILY 11/01/20 02/05/22 History Topiramate [Topamax] 25 mg PO DAILY 11/01/20 02/05/22 History QUEtiapine [SEROquel] 100 mg PO HS 02/05/22 02/05/22 History Trihexyphenidyl [Artane] 5 mg PO DAILY 02/05/22 02/05/22 History Allergies Allergy/AdvReac Type Severity Reaction Status Date / Time lithium Allergy Unknown Verified 02/05/22 13:34 Penicillins Allergy Unknown Verified 02/05/22 13:34 propoxyphene napsylate Allergy Unknown Verified 02/05/22 13:34 [From [facility]oc[facility]-N 100] Exam Vital Signs Temp Pulse Resp BP Pulse Ox 02/05/22 13:37 98.1 F 68 17 111/73 96 Intake and Output 02/04/22 02/05/22 02/05/22 22:59 06:59 14:59 Other: Weight 83.915 kg Height 5 feet 3 inches, weight 185 pounds, BMI 32.8. This is a well-developed well-nourished white female who is alert and oriented times 3 in no acute distress. HEENT: Within normal limits. NECK: Supple without mass or thyromegaly. CHEST AND LUNGS: Clear to auscultation. HEART: Regular rate and rhythm. BREASTS: Are without mass or discharge. AXILLARY EXAM: Negative for adenopathy. BACK: Negative for CVA tenderness. ABDOMEN: Soft, nontender, without palpable masses. PELVIC EXAM: Normal external genitalia. Cervix and vagina appear normal. There is no unusual discharge. There is no evidence of prolapse. The uterus is midposition, nongravid size and nontender. There are no palpable adnexal masses or tenderness. RECTAL EXAM: negative for mass or tenderness and is negative for occult blood. There is good sphincter tone. EXTREMITIES: Nontender. IMPRESSION: 1. 41-year-old female status post tubal ligation and endometrial ablation with post-ablation amenorrhea. 2. Normal gynecologic exam. 3. Stress urinary incontinence with no significant pelvic prolapse on exam. PLAN: 1. Pap smear was deferred since she had a negative Pap smear cotest on 12/05/2020. 2. Self breast awareness was discussed with the patient. We have also discussed symptoms associated with inflammatory breast cancer. 3. Diagnostic bilateral mammogram was done today. This was a diagnostic study because of previous abnormal mammogram. 4. We have discussed her weight gain and weight control. I have stressed the importance of good nutrition, regular exercise, regular meals and adequate fiber. We have also discussed the importance of regular exercise. 5. She has not received a Covid vaccination, but has had Covid. She is aware that Covid vaccinations are available and may increase her protection. 6. She has tried kegal exercises and timed voids without much success with her stress urinary incontinence. She will be referred to Dr. Severo Locke, [id number] oncology rep specialist, for evaluation and treatment. 7. She was advised to return in one year for her annual well woman exam.
== END | disposition home or self-care (01) ==
LOC: RADMAMWWP 12:59
PROVIDERS: ATTEND Obstetrics & Gynecology
DX: R92.8 Other abnormal and inconclusive findings on diagnostic imaging of breast (principal); Z80.3 Family history of malignant neoplasm of breast
CPT/HCPCS: 77066

== ENCOUNTER → 2024-08-10 | Outpatient (CLI) | payer OTHER ==
--- NOTE | 2024-08-10 17:07 | P.PN ---
Progress Note - Text Progress Note Date: 08/10/24 The patient called on 08/10/2024. She has gone without menstrual periods since her endometrial ablation in 2020. She was experiencing hot flashes and started taking an [id number] supplement, which she believes is called Estrovera. She states she was not feeling well about 5 days ago and she felt premenstrual with cramping and fatigue. 2 days ago she developed heavy menstrual-like flow and this has decreased to end of menstrual period like flow today. She states the [id number] supplement did seem to help with the hot flashes and has not taken it for about 1 to 2 weeks. Impression: Probably perimenopausal female with menstrual-like bleeding following post endometrial ablation amenorrhea. Plan: She will come in to have FSH and estradiol drawn. The order slip was left at the [facility]. She states she will come in to have this drawn tomorrow. She also has made an appointment to be seen for her well woman examination in 1 week. She was also instructed to call the emergency room if vaginal bleeding becomes excessive. She will not take the [id number] menopausal supplement since I think that at times this may act as an estrogen. If the blood test indicates she is menopausal, we will consider endometrial sampling. If she is not menopausal, we will consider monitoring vaginal bleeding with consideration for sampling if abnormal bleeding persists.
== END ==
LOC: WWCWWP 16:34
PROVIDERS: ATTEND Obstetrics & Gynecology
DX: N99.85 Post endometrial ablation syndrome (principal); Z87.891 Personal history of nicotine dependence; Z88.0 Allergy status to penicillin; Z88.5 Allergy status to narcotic agent; Z88.8 Allergy status to other drugs, medicaments and biological substances

== ENCOUNTER → 2024-08-11 | Outpatient (CLI) | payer OTHER ==
[2024-08-11 15:53] LABS: Estradiol 90.5 pg/mL
[2024-08-11 16:17] LABS: Follicle Stimulating Hormone 5.5 mIU/mL
== END | disposition home or self-care (01) ==
LOC: LABWHC1 08:35
PROVIDERS: ATTEND Obstetrics & Gynecology
DX: N95.1 Menopausal and female climacteric states (principal)
CPT/HCPCS: 36415; 82670; 83001

== ENCOUNTER → 2024-08-17 | Outpatient (CLI) | payer OTHER ==
[2024-08-17 16:44] VITALS: BP 118/75; PULSE 102; RESP 16; TEMP 99.2
--- NOTE | 2024-08-17 17:40 | P.HPOB ---
History of Present Illness H&P Date: 08/17/24 Chief Complaint: The patient is here for her routine gynecologic exam This is a 44-year-old G3, P3 with an LMP of 08/08/2024. Patient is status post endometrial ablation in 2020 and had been amenorrheic until last week. She was developing hot flashes during the night and started taking an [id number]-apqrqaf supplement called Estrovera which she took for about 2 months. Her hot flashes resolved and she discontinued it about 2 weeks ago. 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 She has not had any more bleeding since about 08/10/2024. She continues to not have significant hot flashes. Patient had an FSH and estradiol checked on 08/11/2024. Both were normal and not in the menopausal range. She is status post tubal ligation. Review of Systems She has lost about 20 pounds over the past 2-1/2 years. She states this weight has been stable for the past year. She denies respiratory, cardiac, or GI problems. Past Medical History Additional Past Medical History / Comment(s): ESOPHAGIAL SPASMS. Accessory spleen,anxiety,depression,migraines. 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 History of Any Multi-Drug Resistant Organisms: None Reported Past Surgical History: Appendectomy, Cholecystectomy, Tubal Ligation, Uterine Ablation Additional Past Surgical History / Comment(s): CERVIAL FUSION,plates and screws in neck. MIGRAINE. Endometrial ablation 2020. Past Anesthesia/Blood Transfusion Reactions: Previous Problems w/ Anesthesia Additional Past Anesthesia/Blood Transfusion Reaction / Comment(s): difficulty coming to after anasthesia Past Psychological History: Anxiety, Bipolar, Depression Additional Psychological History / Comment(s): previous suicide attempt ~2004 Smoking Status: Former smoker, Vaper (Trying to quit.) Past Alcohol Use History: Rare (2 drinks per year.) Additional Past Alcohol Use History / Comment(s): Quit smoking cigarettes in 2018. Past Drug Use History: Marijuana (About 2 days/week she uses marijuana.) Additional Drug Use History / Comment(s): She smokes marijuana, but not daily. She states she tends to use them more for anxiety as needed. Additional History: She has been with her boyfriend since about 2009 and lives with him. 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 - Past Family History Daughter(s) Family Medical History: Diabetes Mellitus Additional Family Medical History / Comment(s): Type I diabetes. Brother(s) Family Medical History: Diabetes Mellitus Additional Family Medical History / Comment(s): Type I diabetes. Father Family Medical History: Cancer Additional Family Medical History / Comment(s): Throat cancer. Cousin had brain cancer. Medications and Allergies Home Medications Medication Instructions Recorded Confirmed Type ARIPiprazole [Abilify] 10 mg PO DAILY 11/01/20 08/17/24 History FLUoxetine HCL [PROzac] 20 mg PO DAILY 11/01/20 08/17/24 History Topiramate [Topamax] 25 mg PO DAILY 11/01/20 08/17/24 History Doxepin [SINEquan] 10 cap PO DIRECTED 08/17/24 08/17/24 History Prazosin [Minipress] 1 mg PO DIRECTED 08/17/24 08/17/24 History busPIRone HCL 15 mg PO BID 08/17/24 08/17/24 History Allergies Allergy/AdvReac Type Severity Reaction Status Date / Time lithium Allergy Unknown Verified 08/17/24 16:29 Penicillins Allergy Unknown Verified 08/17/24 16:29 propoxyphene napsylate Allergy Unknown Verified 08/17/24 16:29 [From Darcet-N 100] Exam Vital Signs Temp Pulse Resp BP Pulse Ox 08/17/24 16:38 99.2 F 102 H 16 118/75 98 Intake and Output 08/17/24 08/17/24 08/17/24 06:59 14:59 22:59 Other: Weight 74.843 kg Height 5 feet 2 inches, weight 165 pounds, BMI 30.2. This is a well-developed well-nourished white female who is alert and oriented times 3 in no acute distress. HEENT: Within normal limits. NECK: Supple without mass or thyromegaly. CHEST AND LUNGS: Clear to auscultation. HEART: Regular rate and rhythm. BREASTS: Are without mass or discharge. There is right nipple central inversion which she states she has had for many years. The left nipple is not inverted. AXILLARY EXAM: Negative for adenopathy. BACK: Negative for CVA tenderness. ABDOMEN: Soft, nontender, without palpable masses. PELVIC EXAM: Normal external genitalia. Cervix and vagina appear normal. There is no unusual discharge. There is no blood seen in the vagina. There is no evidence of prolapse. The uterus is midposition, nongravid size and nontender. There are no palpable adnexal masses or tenderness. RECTAL EXAM: negative for mass or tenderness and is negative for occult blood. EXTREMITIES: Nontender. IMPRESSION: 1. 44-year-old premenopausal female with amenorrhea following an endometrial ablation in 2020 with a menstrual-like flow last week. Show diagnosis will include small amount of endometrium still present and reactive to her hormones. This may also be related to the [id number] supplement that she took for menopausal type symptoms which may have worked as a weak estrogen. This has been discontinued and she is no longer bleeding. 2. She is status post tubal ligation. 3. Normal gynecologic exam. PLAN: 1. Pap smear cotest was performed. 2. Self breast awareness was discussed with the patient. We have also discussed symptoms associated with inflammatory breast cancer. 3. Screening mammogram is due. The patient states she has an order for this given to her by her PCP. She will be doing this in the near future. 4. Patient will keep a menstrual calendar and call if she is having frequent bleeding, prolonged bleeding, or heavy bleeding, or problems. Since her bleeding has stopped we will follow this conservatively. We will consider intervention if she is having bleeding problems. 5. Osteoporosis prevention was discussed. I have stressed the importance of adequate calcium, vitamin D and regular exercise. Recommended amounts of calcium and vitamin D were also discussed. 6. She was advised to return in one year for her annual well woman exam and as needed.
== END ==
LOC: WWCWWP 16:08
PROVIDERS: ATTEND Obstetrics & Gynecology
DX: Z01.419 Encounter for gynecological examination (general) (routine) without abnormal findings (principal); N91.2 Amenorrhea, unspecified; Z98.51 Tubal ligation status; Z88.7 Allergy status to serum and vaccine; Z88.0 Allergy status to penicillin; Z88.8 Allergy status to other drugs, medicaments and biological substances; Z98.891 History of uterine scar from previous surgery; Z87.891 Personal history of nicotine dependence